=== PATIENT | male | born 1955 | race Hispanic/Latino ===

== ENCOUNTER 2017-09-29 15:00 | Inpatient (IN) | payer OTHER ==
[~2017-09-29] VITALS: Ht 177.8 cm; Wt 88.0 kg
[2017-09-29 16:39] VITALS: BP 168/87
[2017-09-29 16:51] LABS: BASOPHILS % (AUTO) 0.3 % (0.0-5.0); EOSINOPHILS % (AUTO) 2.9 % (0.0-8.0); HEMATOCRIT 42.5 % (42-54); LYMPHOCYTES % (AUTO) 20.5 % (21.0-51.0); MEAN CORPUSCULAR HEMOGLOBIN 32.8 pg (27.0-33.0); MEAN CORPUSCULAR HGB CONC 35.6 g/dL (32.0-36.0); MEAN CORPUSCULAR VOLUME 92.1 fL (79-99); MONOCYTES % (AUTO) 7.3 % (3.0-13.0); PLATELET COUNT (AUTO) 356 K/uL (130-400); RED BLOOD CELL COUNT(AUTO) 4.61 MIL/uL (4.50-6.20); WHITE BLOOD COUNT (AUTO) 7.9 K/uL (4.8-10.8)
[2017-09-29 17:03] LABS: INR 1.04 (0.85-1.15); PARTIAL THROMBOPLASTIN TIME 26.6 SEC (26.3-35.5); PROTHROMBIN TIME 10.9 SEC (9.6-11.6)
[2017-09-29 17:08] LABS: ALBUMIN 3.9 g/dL (3.5-5.0); BILIRUBIN,TOTAL 0.9 mg/dL (0.2-1.0); CREATININE 1.1 mg/dL (0.5-1.5); POTASSIUM 3.7 mmol/L (3.5-5.1); TOTAL PROTEIN, SERUM 8.3 g/dL (6.0-8.3)
[2017-09-29 17:36] LABS: APPEARANCE,URINE Clear (CLEAR); BILIRUBIN,URINE Negative (NEGATIVE); COLOR,URINE Yellow (YELLOW); GLUCOSE, URINE (UA) Negative (NEGATIVE); KETONES,URINE Negative (NEGATIVE); LEUKOCYTE ESTERASE ,URINE Negative (NEGATIVE); NITRATE,URINE Negative (NEGATIVE); OCCULT BLOOD,URINE Trace (NEGATIVE); PH,URINE 5.5 (5.0-8.0); PROTEIN,URINE Negative (NEGATIVE)
[2017-09-29 18:53] LABS: BACTERIA,URINE Few /HPF (None Seen); MUCUS,URINE Moderate LPF (None Seen); SQUAMOUS EPITHELIAL CELL,UR Rare /LPF (0-2); WBC,URINE 0-1 /HPF (0-1)
[2017-09-30] VITALS (26 sets, daily range): BP systolic 108–161; BP diastolic 55–87
[2017-09-30] MEDS ORDERED: LACTATED RINGERS 1000ML 1,000 ML IV ONE (07:15)
[2017-09-30] MEDS ORDERED: CEFAZOLIN SODIUM 1 GM VIAL IVP ONE (08:00)
[2017-09-30] MEDS ORDERED: WATER FOR INJECTION,STERILE 20 ML VIAL IJ ONE (08:00)
[2017-09-30] MEDS ORDERED: GENTAMICIN 80 MG/NS 100 ML PB 100 ML IV ONE (08:00)
[2017-09-30] MEDS ORDERED: PROPOFOL 10 MG/ML 20ML VIAL IV ONE (08:21)
[2017-09-30] MEDS ORDERED: FENTANYL CITRATE PF 50 MCG/1 ML 2ML VIAL ONE ×2 (08:21→08:56)
[2017-09-30] MEDS ORDERED: MIDAZOLAM HCL 1 MG/ML 2ML VIAL ONE (08:21)
[2017-09-30] MEDS ORDERED: ONDANSETRON HCL 4 MG/2 ML VIAL ONE (08:21)
[2017-09-30] MEDS ORDERED: DEXAMETHASONE SOD PHOSPHATE 10MG/ML 1ML VIAL ONE (08:21)
[2017-09-30] MEDS ORDERED: LIDOCAINE PF 2% 5ML ABBOJECT ONE (08:21)
[2017-09-30] MEDS ORDERED: GLYCOPYRROLATE 0.2 MG/ML 5 ML VIAL ONE (08:21)
[2017-09-30] MEDS ORDERED: CEFAZOLIN SODIUM 1 GM VIAL ONE (08:23)
[2017-09-30 12:08] LABS: HEMATOCRIT 36.3 % (42-54)
[2017-09-30] MEDS ORDERED: MEPERIDINE-PF 50 MG/ML SYG ONE (12:09)
[2017-09-30] MEDS ORDERED: MORPHINE SULFATE 10 MG/ML 1ML SYG ONE (14:46)
[2017-09-30 18:27] LABS: HEMATOCRIT 36.3 % (42-54)
[2017-09-30] MEDS ORDERED: MORPHINE SULFATE 10 MG/ML 1ML SYG IM PRN (18:45)
[2017-09-30] MEDS ORDERED: DEXTROSE 5%-LACTATED RINGERS 1,000 ML IV SCH (18:45)
[2017-09-30] MEDS: WATER FOR INJECTION,STERILE 20 ML VIAL IJ SCH (18:45)
[2017-09-30] MEDS ORDERED: PROMETHAZINE HCL 25 MG/ML 1ML AMPULE IM PRN (18:45)
[2017-09-30] MEDS ORDERED: BISACODYL 10 MG SUPP.RECT RC PRN (18:45)
[2017-09-30] MEDS ORDERED: MAGNESIUM HYDROXIDE 30 ML/UDCUP PO PRN (18:45)
[2017-09-30] MEDS: CEFAZOLIN SODIUM 1 GM VIAL IVP SCH (19:43)
[2017-09-30] MEDS: GENTAMICIN 80 MG/NS 100 ML PB 100 ML IV SCH (19:43)
[2017-09-30] MEDS ORDERED: FLU VACC QS2017-18 36MOS UP/PF 60 MCG/0.5 ML ML IM ONE (20:00)
[2017-10-01 00:26] LABS: HEMATOCRIT 34.1 % (42-54)
[2017-10-01] MEDS: WATER FOR INJECTION,STERILE 20 ML VIAL IJ SCH ×3 (02:45→18:37)
[2017-10-01] MEDS ORDERED: MORPHINE SULFATE 8 MG/ML VIAL ONE ×2 (03:44→10:28)
[2017-10-01] MEDS: CEFAZOLIN SODIUM 1 GM VIAL IVP SCH ×3 (03:52→18:37)
[2017-10-01] MEDS: GENTAMICIN 80 MG/NS 100 ML PB 100 ML IV SCH ×3 (03:52→18:37)
[2017-10-01 04:38] VITALS: BP 143/78
[2017-10-01 06:01] LABS: HEMATOCRIT 34.9 % (42-54)
[2017-10-01 07:51] VITALS: BP 118/69
[2017-10-01] MEDS ORDERED: FLU VACC QS2017-18 36MOS UP/PF 60 MCG/0.5 ML ML IM ONE (08:07)
[2017-10-01] MEDS ORDERED: ENOXAPARIN SODIUM 40 MG/0.4 ML SYRINGE SQ SCH (12:00)
[2017-10-01] MEDS ORDERED: MORPHINE SULFATE 2 MG/ML 1ML SYG IM PRN (12:00)
[2017-10-01 15:19] VITALS: BP 134/75
[2017-10-01] MEDS: ACETAMINOPHEN-CODEINE 300/30MG TAB PO PRN ×2 (15:34→19:52)
[2017-10-01] MEDS: WARFARIN SODIUM 1 MG TAB PO SCH (15:35)
[2017-10-01] MEDS ORDERED: CEFAZOLIN 2GM / 50 ML 50 ML IV SCH (18:45)
[2017-10-01 19:43] VITALS: BP 118/73
[2017-10-01 23:32] VITALS: BP 140/78
[2017-10-02] MEDS: CEFAZOLIN SODIUM 1 GM VIAL IVP SCH (02:37)
[2017-10-02] MEDS: GENTAMICIN 80 MG/NS 100 ML PB 100 ML IV SCH (02:38)
[2017-10-02] MEDS: WATER FOR INJECTION,STERILE 20 ML VIAL IJ SCH ×2 (02:38→11:00)
[2017-10-02] MEDS: ACETAMINOPHEN-CODEINE 300/30MG TAB PO PRN ×2 (02:40→13:48)
[2017-10-02 04:00] VITALS: BP 131/78
[2017-10-02 05:01] LABS: HEMATOCRIT 33.4 % (42-54); MEAN CORPUSCULAR HEMOGLOBIN 33.2 pg (27.0-33.0); MEAN CORPUSCULAR HGB CONC 35.8 g/dL (32.0-36.0); MEAN CORPUSCULAR VOLUME 92.9 fL (79-99); PLATELET COUNT (AUTO) 236 K/uL (130-400); RED CELL DISTRIBUTION WIDTH 13.2 % (11.0-15.5)
[2017-10-02 05:19] LABS: INR 1.15 (0.85-1.15)
[2017-10-02 07:00] VITALS: BP 136/75
[2017-10-02 10:51] VITALS: BP 127/80
[2017-10-02] MEDS: WARFARIN SODIUM 1 MG TAB PO SCH (16:10)
[2017-10-02] MEDS ORDERED: TYL3 PO (16:39)
[2017-10-02] MEDS ORDERED: WARF5TAB76 PO (16:40)
== END 2017-10-02 17:46 | disposition home or self-care (01) | DRG 494 ==
LOC: EDSTATUS 15:00 → DAHIP 09-30 05:37 → 4BH 09-30 12:38
PROC: 0QSG04Z Reposition Right Tibia with Internal Fixation Device, Open Approach (ICD-10-PCS; principal; 2017-09-30 08:54)
PROC: 0QBB0ZZ Excision of Right Lower Femur, Open Approach (ICD-10-PCS; 2017-09-30 08:54)
PROC: 0QUG07Z Supplement Right Tibia with Autologous Tissue Substitute, Open Approach (ICD-10-PCS; 2017-09-30 08:54)
DX: S82.141A Displaced bicondylar fracture of right tibia, initial encounter for closed fracture (principal); K21.9 Gastro-esophageal reflux disease without esophagitis; S82.401A Unspecified fracture of shaft of right fibula, initial encounter for closed fracture; W01.0XXA Fall on same level from slipping, tripping and stumbling without subsequent striking against object, initial encounter; Y93.89 Activity, other specified; Y92.89 Other specified places as the place of occurrence of the external cause; Y99.8 Other external cause status; Z79.01 Long term (current) use of anticoagulants
CPT/HCPCS: 36415; 71045; 76000; 80053; 81001; 85025; 85027; 85610; 85730; 86592; 86850; 86900; 86901; 86922; 87070; 87076; 87205; 93005; 94760; A4218; A4344; A4606; J0690; J1100; J1580; J1650; J2001; J2175; J2250; J2270; J2405; J2704; J3010; J3490; J7120; Q2038